=== PATIENT | female | born 1955 | race Caucasian/White ===

== ENCOUNTER → 2016-09-13 | Outpatient (CLI) | payer MEDICARE, MEDICAID ==
[~2016-09-13] MED LIST: ALENDRONATE SOD35 MG PO; ASPIRIN EC81 MG; ASPIRIN EC81 MG PO; BUSPAR10 MG PO; CLARITIN10 MG PO; DOCUSATE SODIU100 MG PO; GEODON20 MG PO; MECLIZINE HCL25 MG PO; OXYCONTIN EXTEN20 MG PO; OXYGEN M-15 INH; RESTASIS1 EACH OPHTH; VENLAFAXINE HC150 MG PO
--- NOTE | ~2016-09-13 | ECHO ---
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 Summary The estimated left ventricular ejection fraction is 60% with normal WM and wall thickness.The left ventricle is normal in size . The left atrium is mildly dilated. The right atrium is mildly dilated. Dilated IVC with poor inspiratory collapse consistent with elevated RA pressure. Procedure Type of Study TTE procedure:2D Echocardiogram, Echo Limited w/o Contrast. Procedure Date Date: 09/13/2016 Start: 03:01 PM Study Location: Echo Lab Technical Quality: Excellent Indications:High Risk Medication Use. Appropriate Use Criteria: 8 Patient Status: Routine Rhythm: NSR HR: 53 bpm BP: 178/81 mmHg M-Mode/2D Measurements LV Diastolic Dimension: 4.69 cm LV Systolic Dimension: 3.05 cm LV Septum Diastolic: 0.93 cm LV PW Diastolic: 1.02 cm AO Root Dimension: 2.3 cm Cardiac Output: 4.23 l/min AV Cusp Separation: 1.8 cm RV Diastolic Dimension: 2.98 cm LA volume: 65 ml LVOT: 1.8 cm RV Base: 2.83 cm LVOT VTI: 31.4 cm RV Mid: 2 cm LV Stroke volume: 79.86 ml TAPSE: 3002 cm TDI-S': 10.7 cm/s Doppler Measurements AV Peak Velocity: 1.43 m/s MV Peak E-Wave: 1.01 m/s AV Peak Gradient: 8.18 mmHg MV Peak A-Wave: 0.8 m/s AV Mean Gradient: 5 mmHg MV E/A Ratio: 1.27 LVOT Peak Velocity: 1.05 m/s MV P1/2t: 82 msec TR Gradient:22.28 mmHg PV Peak Velocity: 0.79 m/s Estimated RAP:8 mmHg PV Peak Gradient: 2.52 mmHg Estimated RVSP: 30 mmHg Estimated PASP: 30.28 mmHg E' Septal Velocity: 0.09 m/s A' Septal Velocity: 0.09 m/s E' Lateral Velocity: 0.1 m/s A' Lateral Velocity: 0.11 m/s Findings Left Ventricle Normal left ventricle size and function. Right Ventricle Normal right ventricle structure and function. Left Atrium The left atrium is mildly dilated. There is no evidence of patent foramen ovale or atrial septal defect by color Doppler. Right Atrium The right atrium is mildly dilated. Dilated IVC with poor inspiratory collapse consistent with elevated RA pressure. Mitral Valve Normal mitral valve structure and function. Aortic Valve Normal aortic valve structure and function. Tricuspid Valve Normal tricuspid valve structure and function. Trivial tricuspid regurgitation by color Doppler. Pulmonic Valve Normal pulmonic valve structure and function. Pericardial Effusion No evidence of pericardial effusion. Miscellaneous Visualized portions of the aortic root and ascending aorta appear normal in size. Pleural Effusion No evidence of pleural effusion. Contractility Score LV regional wall motion:(0-Non visualized 1-Normal 2-Hypokinesis 3-Akinesis 4-Dyskinesis 5-Aneurysm) Signature dtt: Mara Chao dtd: 09/13/16 1501 Physician Self Edit
== END | disposition disaster alternative care site (69) ==
LOC: GKIC 09:39
DX: C83.31 Diffuse large B-cell lymphoma, lymph nodes of head, face, and neck (principal); B19.20 Unspecified viral hepatitis C without hepatic coma; K76.9 Liver disease, unspecified; R92.1 Mammographic calcification found on diagnostic imaging of breast; R91.8 Other nonspecific abnormal finding of lung field; Z79.899 Other long term (current) drug therapy
CPT/HCPCS: A9552; G0206; G0279; Q9967

== ENCOUNTER → 2016-09-19 | Outpatient (CLI) | payer MEDICARE, MEDICAID | END | disposition disaster alternative care site (69) | LOC: GOPD 09-18 | PROC: 0FB13ZX Excision of Right Lobe Liver, Percutaneous Approach, Diagnostic (ICD-10-PCS; principal; 2016-09-19) | DX: K75.9 Inflammatory liver disease, unspecified (principal); C83.80 Other non-follicular lymphoma, unspecified site; Z79.899 Other long term (current) drug therapy | CPT/HCPCS: J2001; J2250; J3010 ==

== ENCOUNTER → 2016-12-17 | Outpatient (CLI) | payer MEDICARE, MEDICAID | LOC: GKIC 11:37 | DX: C83.31 Diffuse large B-cell lymphoma, lymph nodes of head, face, and neck (principal); K76.9 Liver disease, unspecified | CPT/HCPCS: A9552 ==